=== PATIENT | female | born 1940 | race Caucasian/White ===

== ENCOUNTER 2017-08-07 18:45 | Inpatient (IN) | payer MEDICARE, OTHER, MEDICAID ==
[2017-08-07] MEDS: CYCLOSPORINE 0.05% OPH DROPERETTE BOTH EYES (01:00)
[2017-08-07 21:16] LABS: WHITE BLOOD COUNT 16.2 10^3/ul (4.8-10.8)
[2017-08-07 21:16] LABS: ABNORMAL IP MESSAGE 1; HEMOGLOBIN 7.7 g/dl (12.0-16.0); MEAN CORPUSCULAR HEMOGLOBIN 29.1 pg (29.0-33.0); MEAN CORPUSCULAR HGB CONC 32.1 g/dl (32.0-37.0); MEAN CORPUSCULAR VOLUME 90.6 fl (82.0-101.0); NUCLEATED RED BLOOD CELLS% 0.2 /100WBC (0.0-0.0); PLATELET COUNT 301 10^3/UL (140-415); RED BLOOD COUNT 2.65 10^6/ul (4.20-5.40)
[2017-08-07] MEDS: ASPIRIN 81 MG TAB PO (21:16)
[2017-08-07] MEDS: NITROGLYCERIN (SL) 0.4 MG TAB SL (21:16)
[2017-08-07 21:19] LABS: ADD MAN DIFF? YES; POSITIVE DIFF @See below
[2017-08-07 21:32] LABS: ANION GAP 17 (8-16); BLOOD UREA NITROGEN 20 mg/dl (7-20); CALCIUM 8.7 mg/dl (8.4-10.2); CARBON DIOXIDE 21 mmol/L (21-31); CHLORIDE 109 mmol/L (97-110); CREATININE 0.69 mg/dl (0.44-1.00); GLUCOSE 92 mg/dl (70-220); POTASSIUM 3.9 mmol/L (3.5-5.1); SODIUM 143 mmol/L (135-144)
[2017-08-07] MEDS: NITROGLYCERIN 2% 1 GM OINT PKT TD (21:42)
[2017-08-07 21:44] LABS: TROPONIN-I < 0.012 ng/ml (0.00-0.12)
[2017-08-07 21:51] LABS: ANISOCYTOSIS 1+ (0-0); BAND NEUTROPHILS #M 0.3 10^3/ul (0.0-0.6); BAND NEUTROPHILS % (M) 2 % (0-4); EOSINOPHILS % (M) 4 % (0-7); GIANT THROMBO% (M) 2 % (0-0); LYMPHOCYTES #M 4.6 10^3/ul (0.8-2.9); LYMPHOCYTES % (M) 29 % (15-51); MICROCYTOSIS 1+ (0-0); MONOCYTE #M 1.2 10^3/ul (0.3-0.9); MONOCYTES % (M) 8 % (0-11); PLATELET ESTIMATE NORMAL; SEG NEUT #M 9.3 10^3/ul (1.6-7.5); SEGMENTED NEUTROPHILS (M) % 57 % (39-77); SMUDGE%M 1 % (0-0)
[2017-08-07] MEDS: SOD CHLORIDE 0.9% 250 ML IV (22:21)
[2017-08-07] MEDS ORDERED: ACETAMINOPHEN 325 MG TAB PO ×2 (22:30→23:00)
[2017-08-07] MEDS ORDERED: ONDANSETRON 4 MG INJ IV ×2 (22:30→23:00)
[2017-08-07] MEDS ORDERED: ZOLPIDEM 5 MG TAB PO (23:00)
[2017-08-07] MEDS ORDERED: ALBUTEROL/IPRATROPIUM (NEB) 3 ML AMP HHN (23:00)
[2017-08-07] MEDS ORDERED: NITROGLYCERIN (SL) 0.4 MG TAB SL (23:00)
[2017-08-07] MEDS ORDERED: NACL 0.9% 3 ML SYG IV (23:00)
[2017-08-08 01:28] LABS: IMMEDIATE SPIN CROSSMATCH 1 2
[2017-08-08 04:35] LABS: CREATINE KINASE 36 IU/L (23-200)
[2017-08-08 04:45] LABS: CK INDEX 2.6; CK-MB 0.93 ng/ml (0.0-2.4)
[2017-08-08 04:47] LABS: TROPONIN-I < 0.012 ng/ml (0.00-0.12)
[2017-08-08 05:57] LABS: ADD MAN DIFF? NO
[2017-08-08 06:11] LABS: BASOPHIL # 0.1 10^3/ul (0.0-0.1); BASOPHILS % 0.5 % (0.0-2.0); EOSINOPHILS # 0.4 10^3/ul (0.0-0.5); EOSINOPHILS % 3.8 % (0.0-7.0); HEMATOCRIT 24.5 % (37.0-47.0); HEMOGLOBIN 8.4 g/dl (12.0-16.0); LYMPHOCYTES # 3.7 10^3/ul (0.8-2.9); LYMPHOCYTES % 33.6 % (15.0-51.0); MEAN CORPUSCULAR HEMOGLOBIN 30.1 pg (29.0-33.0); MEAN CORPUSCULAR HGB CONC 34.3 g/dl (32.0-37.0); MEAN CORPUSCULAR VOLUME 87.8 fl (82.0-101.0); MEAN PLATELET VOLUME 9.6 fl (7.4-10.4); MONOCYTE # 0.7 10^3/ul (0.3-0.9); MONOCYTES % 6.7 % (0.0-11.0); NEUTROPHIL # 5.9 10^3/ul (1.6-7.5); NEUTROPHILS % 53.4 % (39.0-77.0); NUCLEATED RED BLOOD CELLS% 0.2 /100WBC (0.0-0.0); PLATELET COUNT 193 10^3/UL (140-415); RED BLOOD COUNT 2.79 10^6/ul (4.20-5.40); RED CELL DISTRIBUTION WIDTH 15.4 % (11.5-14.5)
[2017-08-08 06:25] LABS: ALANINE AMINOTRANSFERASE 24 IU/L (13-69); ALBUMIN 3.1 g/dl (3.3-4.9); ALBUMIN/GLOBULIN RATIO 1.06; ALKALINE PHOSPHATASE 52 IU/L (42-121); ANION GAP 15 (8-16); ASPARTATE AMINO TRANSFERASE 16 IU/L (15-46); BILIRUBIN,INDIRECT 0.4 mg/dl (0-1.1); BILIRUBIN,TOTAL 0.4 mg/dl (0.2-1.3); BLOOD UREA NITROGEN 15 mg/dl (7-20); CALCIUM 8.3 mg/dl (8.4-10.2); CARBON DIOXIDE 23 mmol/L (21-31); CHLORIDE 111 mmol/L (97-110); CHOL/HDL RATIO 5.9 RATIO; CHOLESTEROL 167 mg/dl (100-200); CREATININE 0.63 mg/dl (0.44-1.00); GLUCOSE 95 mg/dl (70-220); HDL CHOLESTEROL 28 mg/dl (33-92); LDL CHOLESTEROL,CALCULATED 103 mg/dl; POTASSIUM 3.6 mmol/L (3.5-5.1); SODIUM 145 mmol/L (135-144); TRIGLYCERIDES 182 mg/dl (0-149)
[2017-08-08 06:25] LABS: HEMOGLOBIN A1C 5.6 % (0-5.9)
[2017-08-08 06:28] LABS: IRON 50 ug/dl (35-150)
[2017-08-08 06:37] LABS: % IRON SATURATION 17 % SAT (22-52); TOTAL IRON BINDING CAPACITY 298 ug/dl (241-421)
[2017-08-08 07:47] LABS: FERRITIN 20.3 ng/ml (11.1-264.0)
[2017-08-08] MEDS ORDERED: ASPIRIN (EC) 81 MG TAB PO (09:00)
[2017-08-08] MEDS ORDERED: ENOXAPARIN 40 MG/0.4 ML SYG SC (09:00)
[2017-08-08] MEDS: CYCLOSPORINE 0.05% OPH DROPERETTE BOTH EYES ×2 (09:22→20:53)
[2017-08-08 11:20] LABS: CREATINE KINASE 35 IU/L (23-200)
[2017-08-08 11:33] LABS: CK INDEX 2.8; CK-MB 0.99 ng/ml (0.0-2.4)
[2017-08-08 11:42] LABS: TROPONIN-I < 0.012 ng/ml (0.00-0.12)
[2017-08-08] MEDS: SERTRALINE 50 MG TAB PO (11:42)
[2017-08-08] MEDS: AMLODIPINE 5 MG TAB PO ×2 (11:43→20:57)
[2017-08-08] MEDS: HYDROCHLOROTHIAZIDE 12.5 MG CAP PO (11:43)
[2017-08-08] MEDS: morphine 2 MG INJ IV (17:02)
[2017-08-08] MEDS: PANTOPRAZOLE 40 MG INJ IV (17:53)
[2017-08-08 18:30] LABS: HEMATOCRIT 27.9 % (37.0-47.0); HEMOGLOBIN 9.6 g/dl (12.0-16.0)
[2017-08-08] MEDS: GABAPENTIN 100 MG CAP PO (20:57)
[2017-08-08] MEDS: ATORVASTATIN 10 MG TAB PO (20:57)
[2017-08-09 00:44] LABS: HEMATOCRIT 27.8 % (37.0-47.0); HEMOGLOBIN 9.5 g/dl (12.0-16.0)
[2017-08-09] MEDS: PANTOPRAZOLE 40 MG INJ IV ×2 (06:38→19:17)
[2017-08-09] MEDS: SERTRALINE 50 MG TAB PO (09:00)
[2017-08-09] MEDS: CYCLOSPORINE 0.05% OPH DROPERETTE BOTH EYES ×2 (09:01→21:23)
[2017-08-09] MEDS: AMLODIPINE 5 MG TAB PO ×2 (09:03→21:21)
[2017-08-09] MEDS: HYDROCHLOROTHIAZIDE 12.5 MG CAP PO (09:03)
[2017-08-09 09:13] LABS: HEMATOCRIT 28.8 % (37.0-47.0); HEMOGLOBIN 9.7 g/dl (12.0-16.0)
[2017-08-09 12:10] LABS: HEMATOCRIT 28.7 % (37.0-47.0); HEMOGLOBIN 9.7 g/dl (12.0-16.0)
[2017-08-09] MEDS: D5W-0.45 NACL + KCL 20 MEQ 1,000 ML IV (13:38)
[2017-08-09] MEDS: PROPOFOL 40 ML (17:18)
[2017-08-09 18:59] LABS: HEMATOCRIT 31.6 % (37.0-47.0); HEMOGLOBIN 10.5 g/dl (12.0-16.0)
[2017-08-09] MEDS: ATORVASTATIN 10 MG TAB PO (21:21)
[2017-08-09] MEDS: GABAPENTIN 100 MG CAP PO (21:21)
[2017-08-10] MEDS: D5W-0.45 NACL + KCL 20 MEQ 1,000 ML IV ×2 (01:30→08:39)
[2017-08-10] MEDS: PANTOPRAZOLE 40 MG INJ IV (06:00)
[2017-08-10] MEDS: AMLODIPINE 5 MG TAB PO (08:37)
[2017-08-10] MEDS: HYDROCHLOROTHIAZIDE 12.5 MG CAP PO (08:37)
[2017-08-10] MEDS: SERTRALINE 50 MG TAB PO (08:37)
[2017-08-10] MEDS: CYCLOSPORINE 0.05% OPH DROPERETTE BOTH EYES (11:45)
== END 2017-08-10 17:35 | disposition home or self-care (01) | DRG 378 ==
LOC: TEL 22:23 → E/R 18:45
PROVIDERS: Pediatrics
PROC: 30233N1 Transfusion of Nonautologous Red Blood Cells into Peripheral Vein, Percutaneous Approach (ICD-10-PCS; principal; 2017-08-09 16:40)
PROC: 0DB68ZX Excision of Stomach, Via Natural or Artificial Opening Endoscopic, Diagnostic (ICD-10-PCS; 2017-08-09 16:40)
DX: K92.1 Melena (principal); D62 Acute posthemorrhagic anemia; R65.10 Systemic inflammatory response syndrome (SIRS) of non-infectious origin without acute organ dysfunction; I10 Essential (primary) hypertension; I70.0 Atherosclerosis of aorta; E78.5 Hyperlipidemia, unspecified; R07.89 Other chest pain; K29.70 Gastritis, unspecified, without bleeding; T39.315A Adverse effect of propionic acid derivatives, initial encounter; Y92.019 Unspecified place in single-family (private) house as the place of occurrence of the external cause
CPT/HCPCS: 36415; 36430; 71045; 80048; 80053; 80061; 82550; 82553; 82728; 83036; 83540; 83735; 84443; 84484; 85014; 85018; 85025; 86644; 86850; 86900; 86901; 86920; 88305; 88312; 93005; 93306; 99291-25